=== PATIENT | female | born 1995 | race African-American/Black ===

== ENCOUNTER 2022-04-08 09:11 | Inpatient (IN) | payer BC, OTHER ==
[2022-04-08] MEDS ORDERED: Oxytocin 10 UNITS/ML VIAL ONE (09:29)
[2022-04-08] MEDS ORDERED: Ibuprofen 800 MG TAB PO PRN (10:14)
[2022-04-08] MEDS ORDERED: Docusate 100 MG CAP PO PRN (10:14)
[2022-04-08] MEDS ORDERED: Misoprostol 200 MCG TAB PR PRN (10:14)
[2022-04-08] MEDS ORDERED: hydrALAZINE 20 MG/ML VIAL SLOW IVP PRN ×2 (10:14→14:59)
[2022-04-08] MEDS ORDERED: Ondansetron PF 4 MG/2 ML Vial IVP PRN ×2 (10:14→14:59)
[2022-04-08] MEDS ORDERED: Lidocaine 1% (PF) 30 ML VIAL SC PRN (10:14)
[2022-04-08] MEDS ORDERED: Promethazine HCl 25 MG/ML VIAL IM PRN (10:14)
[2022-04-08] MEDS ORDERED: Methylergonovine 0.2 MG/ML VIAL IM PRN ×2 (10:14→14:59)
[2022-04-08] MEDS ORDERED: NS w/ Oxytocin 30 units 500 ML IV SCH ×2 (10:15→14:59)
[2022-04-08] MEDS ORDERED: Lactated Ringer's 1,000 ML IV SCH (10:15)
[2022-04-08 10:41] LABS: Hemoglobin 11.1 g/dL (12.0-15.5); Mean Corpuscular HGB CONC 32.8 g/dL (32.0-36.0); Mean Corpuscular Hemoglobin 23.3 pg (27.0-33.0); Mean Platelet Volume 10.8 fl (7.4-10.4); Platelet Count 266 10x3/uL (150-450); RBC Distribution Width 15.7 % (11.5-14.5); Red Blood Cell (RBC) Count 4.76 10x6/uL (3.90-5.03); White Blood Cell (WBC) Count 13.6 10x3/uL (3.5-10.5)
[2022-04-08 11:14] LABS: HBSAg Index 0.16 S/CO (0-0.99); Hep B Surf Ag Non-Reactive S/CO (NonReactive)
[2022-04-08 11:15] LABS: Syphilis Antibody Nonreactive (Nonreactive); Syphilis Antibody Index 0.26 S/CO (<1.00 Non-Reactive)
[2022-04-08 12:08] LABS: SARS-CoV-2 NAA Rapid Test Not Detected (NotDetected)
[2022-04-08] MEDS ORDERED: Misoprostol 200 MCG TAB VAG PRN (14:59)
[2022-04-08] MEDS ORDERED: Benzocaine-Menthol 82.5 ML CAN TOP PRN (14:59)
[2022-04-08] MEDS ORDERED: Lanolin Ointment 7 GM TUBE TOP PRN (14:59)
[2022-04-08] MEDS ORDERED: Boostrix 0.5 ML (Tdap) VIAL (>/=7 yrs of age) IM ONE (14:59)
[2022-04-08] MEDS ORDERED: Bisacodyl 10 MG SUPP PR PRN (14:59)
[2022-04-08] MEDS ORDERED: Milk Of Magnesia 30 ML UDCUP PO PRN (14:59)
[2022-04-08] MEDS: Ibuprofen 800 MG TAB PO SCH (16:00)
[2022-04-08] MEDS: Ferrous Sulfate 325 MG TAB PO SCH (19:13)
[2022-04-08] MEDS: Docusate 100 MG CAP PO SCH (21:28)
[2022-04-09] MEDS: Ibuprofen 800 MG TAB PO SCH ×3 (00:17→15:41)
[2022-04-09] MEDS: Prenatal Vitamin 1 TAB PO SCH (08:04)
[2022-04-09] MEDS: Docusate 100 MG CAP PO SCH ×2 (08:04→21:25)
[2022-04-09] MEDS: Ferrous Sulfate 325 MG TAB PO SCH ×2 (08:36→15:43)
[2022-04-10] MEDS: Ibuprofen 800 MG TAB PO SCH ×2 (00:03→08:01)
[2022-04-10] MEDS: Ferrous Sulfate 325 MG TAB PO SCH (07:10)
[2022-04-10] MEDS: Docusate 100 MG CAP PO SCH (08:01)
[2022-04-10] MEDS: Prenatal Vitamin 1 TAB PO SCH (08:01)
[2022-04-10 11:58] VITALS: BP 108/71; TEMP 98.4; BMI 27.7
== END 2022-04-10 16:50 | disposition home or self-care (01) | DRG 807 ==
LOC: CSHLD/OP 09:11 → CSHLD 09:37 → CSHPP 11:42
PROVIDERS: ADMIT Family Medicine; ATTEND Family Medicine
PROC: 10E0XZZ Delivery of Products of Conception, External Approach (ICD-10-PCS; principal; 2022-04-08)
DX: O42.02 Full-term premature rupture of membranes, onset of labor within 24 hours of rupture (principal); Z37.0 Single live birth; O99.52 Diseases of the respiratory system complicating childbirth; J45.909 Unspecified asthma, uncomplicated; Z20.822 Contact with and (suspected) exposure to COVID-19; Z3A.38 38 weeks gestation of pregnancy; Z90.89 Acquired absence of other organs
CPT/HCPCS: 36415; 85027; 86762; 86780; 86850; 86900; 86901; 87340; 88307; 99285; J2590; U0002

== ENCOUNTER 2023-06-26 18:42 | Inpatient (IN) | payer BC ==
[~2023-06-26 18:42] MED LIST: Bupivacaine 0.25% HCL 30 ML VIAL ONE
[2023-06-26] MEDS ORDERED: Ondansetron PF 4 MG/2 ML Vial IVP PRN (18:57)
[2023-06-26] MEDS ORDERED: hydrALAZINE 20 MG/ML VIAL SLOW IVP PRN (18:57)
[2023-06-26] MEDS ORDERED: Promethazine HCl 25 MG/ML VIAL IM PRN (18:57)
[2023-06-26] MEDS ORDERED: Misoprostol 200 MCG TAB PR PRN (18:57)
[2023-06-26] MEDS ORDERED: Lidocaine 1% (PF) 30 ML VIAL SC PRN (18:57)
[2023-06-26] MEDS ORDERED: Methylergonovine 0.2 MG/ML VIAL IM PRN (18:57)
[2023-06-26] MEDS ORDERED: Tranexamic Acid 1,000 MG/10 ML VIAL IVP PRN (18:57)
[2023-06-26] MEDS ORDERED: Ibuprofen 800 MG TAB PO PRN (18:57)
[2023-06-26] MEDS ORDERED: Acetaminophen 500 MG TAB PO PRN (18:57)
[2023-06-26] MEDS ORDERED: Penicillin G Potassium 5 MILL.UNITS in Sodium Chloride 0.9% 100 ML IVPB SCH (19:00)
[2023-06-26] MEDS ORDERED: Oxytocin 30 units/NS 500 ML 500 ML IV SCH ×2 (19:00)
[2023-06-26] MEDS ORDERED: Lactated Ringer's 500 ML IV SCH (20:00)
[2023-06-26 20:01] LABS: Hematocrit 32.8 % (34.9-44.5); Hemoglobin 10.5 g/dL (12.0-15.5); Mean Corpuscular Hemoglobin 22.7 pg (27.0-33.0); Mean Platelet Volume 10.3 fl (7.4-10.4); Platelet Count 207 10x3/uL (150-450); RBC Distribution Width 16.4 % (11.5-14.5); Red Blood Cell (RBC) Count 4.62 10x6/uL (3.90-5.03); White Blood Cell (WBC) Count 7.2 10x3/uL (3.5-10.5)
[2023-06-26 20:25] VITALS: BMI 31.3
[2023-06-26 20:31] LABS: HBSAg Index 0.16 S/CO (0-0.99); Hep B Surf Ag - L&D Non-Reactive S/CO (NonReactive)
[2023-06-26 20:32] LABS: Syphilis Antibody Nonreactive (Nonreactive)
[2023-06-26] MEDS ORDERED: Misoprostol 100 MCG TAB ONE (21:35)
[2023-06-26] MEDS: Misoprostol 100 MCG TAB VAG SCH (21:47)
[2023-06-26 22:01] LABS: HIV (1/2) Antibody/Antigen Non-Reactive (NonReactive); HIV 1/2 INDEX 0.08 S/CO (<1.00)
[2023-06-26] MEDS ORDERED: Penicillin G 2.5 MILL.units 2.5 MILL.UNITS in Premix 1 BAG IVPB SCH (23:00)
[2023-06-27] MEDS: Misoprostol 100 MCG TAB VAG SCH ×4 (02:25→17:05)
[2023-06-27] MEDS ORDERED: fentaNYL/Ropivacaine Epidural 100 ML ONE (09:05)
[2023-06-27] MEDS: Lactated Ringer's 1,000 ML IV SCH ×3 (10:21→13:11)
[2023-06-27] MEDS ORDERED: Promethazine HCl 25 MG/ML VIAL IM PRN (10:29)
[2023-06-27] MEDS ORDERED: Naloxone HCl 0.4 mg/ml Vial IVP PRN ×2 (10:29)
[2023-06-27] MEDS ORDERED: diphenhydrAMINE 50 MG/ML VIAL IVP PRN (10:29)
[2023-06-27] MEDS ORDERED: ePHEDrine Sulfate 50 MG/10 ML VIAL SLOW IVP PRN (10:29)
[2023-06-27] MEDS ORDERED: Moisturizing Cream (Eucerin) 113 GM JAR TOP PRN (10:29)
[2023-06-27] MEDS ORDERED: Acetaminophen 325 MG TAB PO PRN (10:29)
[2023-06-27] MEDS ORDERED: Ondansetron PF 4 MG/2 ML Vial IVP PRN (10:29)
[2023-06-27] MEDS ORDERED: Lactated Ringer's 500 ML IV PRN (10:29)
[2023-06-27] MEDS ORDERED: Communication Order-Pharmacy FS SCH (10:30)
[2023-06-27] MEDS ORDERED: fentaNYL 2 mcg/Ropivacaine 0.2% Epidural 100 ML CADD EPIDURAL SCH (10:30)
[2023-06-27] MEDS ORDERED: Boostrix 0.5 ML (Tdap) VIAL (>/=7 yrs of age) IM ONE (15:52)
[2023-06-27] MEDS ORDERED: hydrALAZINE 20 MG/ML VIAL SLOW IVP PRN (15:52)
[2023-06-27] MEDS ORDERED: Bisacodyl 10 MG SUPP PR PRN (15:52)
[2023-06-27] MEDS ORDERED: Milk Of Magnesia 30 ML UDCUP PO PRN (15:52)
[2023-06-27] MEDS: Ferrous Sulfate 325 MG TAB PO SCH (17:04)
[2023-06-27] MEDS: Ibuprofen 800 MG TAB PO SCH (17:36)
[2023-06-27] MEDS: Docusate 100 MG CAP PO SCH (21:46)
[2023-06-28] MEDS: Ibuprofen 800 MG TAB PO SCH ×3 (01:19→16:28)
[2023-06-28] MEDS: Ferrous Sulfate 325 MG TAB PO SCH (08:09)
[2023-06-28] MEDS: Acetaminophen 500 MG TAB PO SCH ×3 (08:22→23:52)
[2023-06-28] MEDS: Docusate 100 MG CAP PO SCH ×2 (08:22→21:37)
[2023-06-28 11:41] LABS: Group B Streptococcus by PCR Not Detected (NotDetected)
[2023-06-29] MEDS: Ibuprofen 800 MG TAB PO SCH ×2 (01:17→08:30)
[2023-06-29] MEDS: Ferrous Sulfate 325 MG TAB PO SCH ×2 (07:27→07:41)
[2023-06-29] MEDS ORDERED: Cyclobenzaprine 10 MG TAB PO SCH (07:30)
[2023-06-29] MEDS: Acetaminophen 500 MG TAB PO SCH (07:39)
[2023-06-29] MEDS: Docusate 100 MG CAP PO SCH (07:39)
[2023-06-29 07:55] VITALS: BP 94/51; TEMP 98.9
== END 2023-06-29 14:40 | disposition home or self-care (01) | DRG 807 ==
LOC: CSHLD 18:42 → CSHPP 06-27 16:05
PROVIDERS: ADMIT Student in an Organized Health Care Education/Training Program; ATTEND Student in an Organized Health Care Education/Training Program
PROC: 10E0XZZ Delivery of Products of Conception, External Approach (ICD-10-PCS; principal; 2023-06-27)
PROC: 10907ZC Drainage of Amniotic Fluid, Therapeutic from Products of Conception, Via Natural or Artificial Opening (ICD-10-PCS; 2023-06-27)
PROC: 3E0P7VZ Introduction of Hormone into Female Reproductive, Via Natural or Artificial Opening (ICD-10-PCS; 2023-06-27)
PROC: 3E033XZ Introduction of Vasopressor into Peripheral Vein, Percutaneous Approach (ICD-10-PCS; 2023-06-27)
DX: O99.02 Anemia complicating childbirth (principal); Z37.0 Single live birth; Z3A.38 38 weeks gestation of pregnancy; D56.3 Thalassemia minor; O99.52 Diseases of the respiratory system complicating childbirth; J45.909 Unspecified asthma, uncomplicated
CPT/HCPCS: 36415; 51702; 85027; 86780; 86850; 86900; 86901; 87340; 87389; 87653; J7120; S0020